=== PATIENT | male | born 1990 | race Caucasian/White ===

== ENCOUNTER 2019-12-21 04:51 | Inpatient (IN) | payer BC ==
[2019-12-21] MEDS ORDERED: Fentanyl 100 MCG/2 ML VIAL ONE (05:09)
[2019-12-21] MEDS ORDERED: Phenylephrine 10 MG/ML VIAL ONE (05:10)
[2019-12-21] MEDS ORDERED: HYDROmorphone 0.5 MG/0.5 ML SYRINGE ONE (05:10)
[2019-12-21] MEDS ORDERED: Sodium Chloride 0.9% 0 ML ONE (05:22)
[2019-12-21] MEDS ORDERED: Heparin 10,000 UNITS/1 ML VIAL ONE (05:25)
[2019-12-21 05:50] LABS: #Lymphocytes 2.3 thou/uL (1.20-3.40); #Monocytes 0.5 thou/uL (0.11-0.59); #Neutrophils 3.7 thou/uL (1.40-6.50); %Basophils 0.4 % (0.0-1.0); %Eosinophils 0.2 % (0.0-10.0); %Monocytes 7.7 % (0.0-10.0); %Neutrophils 56.8 % (42.0-75.0); Hemoglobin 9.5 g/dL (14.0-18.0); Mean Corpuscular HGB CONC 34.1 g/dL (32.0-36.0); Mean Corpuscular Volume 96.9 fL (78.0-98.0); Mean Platelet Volume 8.8 fL (7.4-10.4); Platelet Count 60 thou/uL (130-400); RBC Distribution Width 14.4 % (11.5-14.5); Red Blood Cell (RBC) Count 2.88 mill/uL (4.70-6.10); White Blood Cell (WBC) Count 6.6 thou/uL (4.8-10.8)
[2019-12-21] MEDS ORDERED: Midazolam HCl 2 mg/2 ml Vial ONE (05:54)
[2019-12-21 05:56] LABS: INR-International Normal Ratio 1.8; Prothrombin Time 20.8 SEC (12.0-14.7)
--- NOTE | 2019-12-21 06:35 | HP ---
CHIEF COMPLAINT: Abdominal pain with suspected splenic rupture. HISTORY OF PRESENT ILLNESS: The patient is a 29-year-old, previously healthy white male. He presented to an outside freestanding emergency room. He was initially hemodynamically stable, when he arrived with a complaint of left upper abdominal pain. Presenting hemoglobin was 14. He eventually underwent CT scan of the chest, abdomen, and pelvis. This revealed what appeared to be hemoperitoneum and irregularity within an enlarged spleen, which was felt to be consistent with a splenic rupture. During the course of his time at the outside ER, he has received 3 L of IV fluid and the fourth was started. He developed increasing diffuse abdominal pain over there as well as progressive hemodynamic instability. When I accepted the call from the [facility], the systolic pressure was less than 100 and his heart rate was between 120 and 130. PAST MEDICAL HISTORY: Negative. PAST SURGICAL HISTORY: None. MEDICATIONS: None. ALLERGIES: NO KNOWN DRUG ALLERGIES. PERSONAL AND SOCIAL HISTORY: He is engaged to be and has a child. 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 He smokes cigarettes, usually about a pack per day, although less recently. He drinks alcohol regularly, but it did not sound like he is a heavy drinker. He does use marijuana. REVIEW OF SYSTEMS: Otherwise unremarkable. FAMILY HISTORY: Noncontributory. PHYSICAL EXAMINATION: VITAL SIGNS: He is afebrile. Pulse is 124. Blood pressure upon arrival was 90 systolic over 45. GENERAL: He is a well-developed, well-nourished white male, who appears somewhat lethargic, but is alert and answers all questions. He is 6 feet 3 inches tall and weighs about 150 pounds. HEAD, EYES, EARS, NOSE, AND THROAT: Unremarkable. NECK: Supple without mass or tenderness. LUNGS: Clear to auscultation throughout. CARDIAC: Regular rate and rhythm without murmur. ABDOMEN: Nondistended. He has no peritoneal signs, but has diffuse abdominal discomfort to palpation. There is no dominant palpable mass. EXTREMITIES: Unremarkable. LABORATORY DATA: Stat labs have been ordered here, but are pending at this time. Hemoglobin at outside facility was 14. His liver function tests were elevated with a bilirubin of 2.7, and his transaminases were elevated in the 400 range. ASSESSMENT: The patient with splenomegaly and what appears to be splenic rupture with progressive hemodynamic instability. PLAN: Emergent laparotomy with planned splenectomy. I have discussed the operation in detail with the patient as well as potential risks. He is being transfused with O-negative blood currently. Job ID: [id number]
[2019-12-21] MEDS ORDERED: Ondansetron PF 4 MG/2 ML Vial IVP PRN ×2 (07:15→13:56)
[2019-12-21] MEDS ORDERED: Dextrose 50% Abboject 50 ML SYRINGE SLOW IVP PRN (07:15)
[2019-12-21] MEDS ORDERED: D5 1/2 NS w/20 mEq KCL 1,000 ML IV SCH (07:15)
[2019-12-21] MEDS ORDERED: Morphine 4 MG/ML VIAL SLOW IVP PRN (07:15)
[2019-12-21] MEDS ORDERED: hydrALAZINE 20 MG/ML VIAL SLOW IVP PRN (07:15)
[2019-12-21] MEDS ORDERED: Dextrose 5% in Water 1,000 ML IV PRN (07:15)
--- NOTE | 2019-12-21 07:34 | RAD ---
Exam: Chest one view HISTORY:Central line placement Comparison: None FINDINGS: Cardiac silhouette: Normal Aorta: Unremarkable Pulmonary vessels: Normal Costophrenic angles: Clear LUNGS: No masses or consolidation. Lines and tubes: Right-sided subclavian vascular catheter with the distal tip terminating on the expe cted region of the right atrium. Pneumothorax: None Osseous abnormalities: None IMPRESSION: 1. Right-sided vascular catheter with its tip terminating over the region of the right atrium. No pne umothorax.
[2019-12-21 07:54] LABS: #Basophils 0.1 thou/uL (0.0-0.2); #Lymphocytes 2.2 thou/uL (1.20-3.40); #Monocytes 1.7 thou/uL (0.11-0.59); #Neutrophils 10.6 thou/uL (1.40-6.50); %Basophils 0.8 % (0.0-1.0); %Eosinophils 0.2 % (0.0-10.0); %Lymphocytes 14.7 % (21.0-51.0); %Monocytes 11.9 % (0.0-10.0); %Neutrophils 72.5 % (42.0-75.0); Hemoglobin 15.5 g/dL (14.0-18.0); Mean Corpuscular HGB CONC 33.5 g/dL (32.0-36.0); Mean Corpuscular Hemoglobin 33.5 pg (27.0-31.0); Mean Platelet Volume 8.5 fL (7.4-10.4); Platelet Count 116 thou/uL (130-400); RBC Distribution Width 14.2 % (11.5-14.5); Red Blood Cell (RBC) Count 4.63 mill/uL (4.70-6.10); White Blood Cell (WBC) Count 14.7 thou/uL (4.8-10.8)
[2019-12-21 08:19] LABS: Anion Gap 15 mmol/L (10-20); BUN (Urea Nitrogen) 18 mg/dL (8.9-20.6); Calc. Creatinine Clearance 0 mL/min (70-130); Calcium 7.4 mg/dL (7.8-10.44); Carbon Dioxide 16 mmol/L (22-29); Chloride 109 mmol/L (98-107); Estimated GFR-MDRD Greater than 90; Glucose 174 mg/dL (70-105); Sodium 135 mmol/L (136-145)
[2019-12-21] MEDS: Famotidine/PF 20 mg/2ml Vial SLOW IVP SCH ×2 (08:32→20:12)
[2019-12-21] MEDS: Morphine 2 MG/ML SYRINGE SLOW IVP PRN ×2 (08:37→11:06)
[2019-12-21] MEDS: Lactated Ringer's 1,000 ML IV SCH ×2 (11:12→18:15)
[2019-12-21] MEDS ORDERED: PROPOFOL 200 MG/20 ML VIAL ONE (11:46)
[2019-12-21] MEDS ORDERED: Lidocaine 1% PF 5 ML VIAL ONE (11:46)
[2019-12-21] MEDS ORDERED: Calcium Chloride 1 GM/10 ML Abboject SYRINGE ONE (11:46)
[2019-12-21] MEDS ORDERED: Ondansetron PF 4 MG/2 ML Vial ONE (11:46)
[2019-12-21] MEDS ORDERED: Rocuronium Bromide 10 MG/ML (10ML VIAL) ONE (11:46)
[2019-12-21] MEDS ORDERED: Dexamethasone 20 MG/5 ML VIAL ONE (11:46)
[2019-12-21] MEDS ORDERED: Glycopyrrolate 0.2 MG/ML 5 ML SYRINGE ONE (11:46)
[2019-12-21] MEDS ORDERED: Zolpidem Tartrate 5 MG TAB PO PRN (13:56)
[2019-12-21] MEDS ORDERED: diphenhydrAMINE 50 MG/ML VIAL IM PRN (13:56)
[2019-12-21] MEDS ORDERED: Naloxone HCl 0.4 mg/ml Vial IV PRN (13:56)
[2019-12-21] MEDS ORDERED: diphenhydrAMINE 25 MG CAP PO PRN (13:56)
[2019-12-21] MEDS ORDERED: diphenhydrAMINE 50 MG/ML VIAL IVP PRN (13:56)
[2019-12-21] MEDS ORDERED: Promethazine HCl 25 MG/ML VIAL IM PRN (13:56)
[2019-12-21] MEDS ORDERED: Communication Order-Pharmacy FS PRN (14:00)
[2019-12-21] MEDS: fentaNYL Citrate/PF 2,000 MCG in Sodium Chloride 0.9% 60 ML IV PRN (15:07)
[2019-12-21 16:31] LABS: MONO NEGATIVE CONTROL ZONE White (Negative) (White); MONO POSITIVE CONTROL Pink Line (Positive) (PINK/RED); Mononucleosis POSITIVE (NEGATIVE)
--- NOTE | 2019-12-21 20:28 | CON ---
DATE OF CONSULTATION: 12/21/2019 HISTORY OF PRESENT ILLNESS: Mr. Schuler is a very pleasant gentleman, who developed abdominal pain several days back. He thought he just slept wrong. The pain on the right started to go away, then he started to have more pain in his left abdomen. He denies any trauma. He has had no fall. He says he has not felt well for about a month, but had not felt horrible either. He certainly did feel bad enough where he thought he had to go to the doctor. Apparently, he was hypotensive at an outside ER and was found to have an evolving splenic rupture. He subsequently has undergone a splenectomy. PAST MEDICAL HISTORY: Otherwise, negative. SOCIAL HISTORY: He has a 6-month-old at home. He is a smoker. Drinks occasionally. FAMILY HISTORY: Negative for lung disease in early age. REVIEW OF SYSTEMS: Otherwise, negative. PHYSICAL EXAMINATION: VITAL SIGNS: Blood pressure 120/78, heart rate 68, respiratory rate is 18, and oximetry is 97. HEAD AND NECK: Unremarkable. LUNGS: Clear. HEART: Regular rhythm. ABDOMEN: Diffusely tender after surgery as expected, but no worse. EXTREMITIES: Without clubbing, cyanosis, or edema. Anesthesia was consulted for pain pump today. LABORATORY DATA: White count 14.7; hemoglobin 15.5; platelets 116, up from 60, 000 yesterday. Sodium 135, potassium 5, chloride 109, bicarb 16, BUN 18, creatinine 0.89, anion gap is 10, and glucose is 174. IMPRESSION: Status post spontaneous splenic rupture of unclear etiology. He appears to be clinically stable. This is a 70 min consult with greater than 50% of the time spent on the unit with coordination of care. Job ID: [id number] MTDD
--- NOTE | 2019-12-21 23:38 | OP ---
DATE OF PROCEDURE: 12/21/2019 PREOPERATIVE DIAGNOSIS: Splenic rupture with hemoperitoneum and hemodynamic instability. POSTOPERATIVE DIAGNOSIS: Splenic rupture with hemoperitoneum and hemodynamic instability. PROCEDURE PERFORMED: Placement of a 12-German right subclavian hemodialysis catheter, open splenectomy. ANESTHESIA: General endotracheal. INDICATIONS: The patient is a 29-year-old white male. He had presented to an outside facility complaining of abdominal pain. During the course of his evaluation, it was recognized to have a hemoperitoneum and had developed hemodynamic instability. CT scan indicated the likelihood of a splenic rupture. Upon his arrival, he was in shock with tachycardia and hypotension. He was immediately transfused with O-negative blood and taken emergently to the operating room to proceed with surgery. DESCRIPTION OF OPERATION: Informed consent was obtained. The patient was taken to the operating room, where general endotracheal anesthesia was obtained with the patient in supine position. Attention was turned first to his central line. Due to his instability, I decided to place a large-bore catheter and obtained a 12-German hemodialysis catheter. This was placed into the right subclavian vein using modified Seldinger technique. A sterile occlusive dressing was applied. All lumens aspirated and flushed easily. Attention was turned to the abdomen. This was prepped with ChloraPrep and draped in sterile fashion. A midline upper abdominal incision was created and dissection was carried through skin and subcutaneous tissue of the abdominal cavity. A massive hemoperitoneum was recognized immediately. The Cell Saver had been assembled prior to the initiation of the operation and this was utilized to aspirate the abdominal contents. I ended up removing 3200 mL of blood from within the patient's abdomen that was submitted to the Cell Saver. During the course of the operation, I also removed numerous formed clots that were another several 100 mL. After the hemoperitoneum was removed, the spleen was examined and found to be ruptured with a large laceration across the superior pole. I packed the left upper quadrant with several laparotomy pads and assembled the Bookwalter retraction device. After this was assembled, I turned my attention to mobilization of the spleen. This was substantially enlarged with obvious splenomegaly. I mobilized this in a lateral to medial fashion. Peritoneal adhesions were broken down using a combination of blunt digital dissection and electrocautery. I was able to mobilize the spleen and identify the splenic hilum as well as the superior vessels to the short gastrics. The investing tissue and the hilum was divided between clamps, placing a total of 4 large Nicole clamps across the tissue and removing the spleen. As it was enlarged and friable, it fell apart during the course of removal and was passed off the field. The tissue and the clamps were ligated with 2-0 silk ties. The remainder of blood within the left upper quadrant was aspirated. The area thereafter was hemostatic. I divided the falciform ligament between clamps and 2-0 silk ties as a tear had developed in the membranous portion. I inspected the liver as the patient had elevated liver function tests, but there was no nodularity or visible or palpable abnormality. I inspected the rest of the abdominal cavity finding no other abnormality. The abdomen was then irrigated with 3 L of saline and then this was all aspirated. Two sheets of Seprafilm were placed within the abdominal cavity. The fascia was then closed with a running suture of looped number one PDS. Skin edges approximated with skin griselda. I considered placing a drain in the left upper quadrant, but there have been no evidence of any significant possibility of a pancreatic injury. The patient remained in stable condition through after his initial resuscitation. He had received 1 unit of blood in the emergency room and another 2 units of blood in the operating room. He also received 2 units of fresh frozen plasma and one six pack of platelets. All of his Cell Saver blood was returned to him as a total of 1800 mL of concentrated blood. The patient was taken, extubated to the intensive care unit in stable condition. Job ID: [id number]
[2019-12-22] MEDS: Lactated Ringer's 1,000 ML IV SCH ×3 (00:24→14:38)
[2019-12-22 04:30] LABS: #Lymphocytes 4.6 thou/uL (1.20-3.40); #Neutrophils 8.2 thou/uL (1.40-6.50); %Eosinophils 0.1 % (0.0-10.0); %Lymphocytes 31.1 % (21.0-51.0); %Monocytes 13.7 % (0.0-10.0); %Neutrophils 55.2 % (42.0-75.0); Hemoglobin 14.1 g/dL (14.0-18.0); Mean Corpuscular HGB CONC 34.1 g/dL (32.0-36.0); Mean Corpuscular Hemoglobin 33.8 pg (27.0-31.0); Mean Corpuscular Volume 99.1 fL (78.0-98.0); Mean Platelet Volume 9.1 fL (7.4-10.4); Platelet Count 110 thou/uL (130-400); RBC Distribution Width 14.2 % (11.5-14.5); Red Blood Cell (RBC) Count 4.16 mill/uL (4.70-6.10); White Blood Cell (WBC) Count 14.8 thou/uL (4.8-10.8)
[2019-12-22 04:52] LABS: ALT (SGPT) 200 U/L (8-55); AST (SGOT) 103 U/L (5-34); Albumin 2.8 g/dL (3.5-5.0); Alkaline Phosphatase 140 U/L (40-110); Anion Gap 11 mmol/L (10-20); BUN (Urea Nitrogen) 10 mg/dL (8.9-20.6); Bilirubin, Total 1.1 mg/dL (0.2-1.2); Calc. Creatinine Clearance 0 mL/min (70-130); Calcium 7.7 mg/dL (7.8-10.44); Carbon Dioxide 25 mmol/L (22-29); Chloride 104 mmol/L (98-107); Estimated GFR-MDRD Greater than 90; Glucose 92 mg/dL (70-105); Protein, Total 4.8 g/dL (6.0-8.3); Sodium 136 mmol/L (136-145)
[2019-12-22] MEDS: Famotidine/PF 20 mg/2ml Vial SLOW IVP SCH (08:46)
--- NOTE | 2019-12-22 12:27 | PRG ---
DATE OF SERVICE: 12/22/2019 SUBJECTIVE: Delon Schuler has no complaints. He has a NUT SIFTER pump for pain and says he has very little if any pain this morning. OBJECTIVE: VITAL SIGNS: Heart rate is 87, blood pressure 120/80, respiratory rate 16, oximetry 93. LUNGS: Unchanged. HEART: Unchanged. ABDOMEN: Unchanged. LABORATORY DATA: Hemoglobin today is 14.1, white count is 14.8, platelets are 110,000. Renal functions normal with creatinine of 0.79. Electrolytes are normal. AST is 103, ALT is 200, alk phos 140, albumin is 2.8. IMPRESSION: Spontaneous splenic rupture. Awaiting spleen pathology. ? secondary to mononucleosis. We will follow. Job ID: [id number] MTDD
[2019-12-22 13:07] VITALS: BMI 19.3
[2019-12-22] MEDS ORDERED: Acetaminophen 500 MG TAB PO PRN (13:15)
[2019-12-22] MEDS ORDERED: traMADol HCl 50 MG TAB PO PRN ×2 (13:17)
[2019-12-22] MEDS: Ketorolac Tromethamine 30 MG/ML VIAL IVP SCH (18:29)
[2019-12-22] MEDS ORDERED: Enoxaparin Sodium 40 MG/0.4 ML SYRINGE SC SCH (21:00)
[2019-12-23] MEDS: Lactated Ringer's 1,000 ML IV SCH ×2 (00:57→10:45)
[2019-12-23] MEDS: Ketorolac Tromethamine 30 MG/ML VIAL IVP SCH ×3 (00:57→11:21)
[2019-12-23] MEDS: fentaNYL Citrate/PF 2,000 MCG in Sodium Chloride 0.9% 60 ML IV PRN (05:06)
[2019-12-23] MEDS ORDERED: HYDROcodone/Acetaminophen 10/325 mg Tablet PO PRN ×2 (09:33→09:34)
[2019-12-23 10:44] VITALS: BP 112/71; TEMP 98.2
[2019-12-23] MEDS ORDERED: traMADol HCl 50 MG TAB PO PRN ×2 (11:41)
--- NOTE | 2019-12-23 12:10 | PRG ---
DATE OF SERVICE: 12/23/2019 SUBJECTIVE: Delon Schuler is status post splenectomy. He is tolerating full liquids without problems. He is not having nausea or vomiting. He has not had any abdominal distention. He, however, has not passed any flatus. He is hoping to go home today. We usually administer vaccinations post splenectomy prior to discharge, but patient is reliable and responsible and I have explained to him extensively necessity of obtaining a post splenectomy vaccinations. It best be administered 2 weeks postoperatively for best immune response. Would write him a prescription to have this done and he will drop it off to the pharmacy to assure that they order and have the necessary vaccinations and then obtain these in 2 weeks. He will be followed by Dr. Montilla in the next 7-8 days for staged staple removal. He can assure that he receive these. OBJECTIVE: PULMONARY: Clear to auscultation. CARDIAC: Regular rate and rhythm without murmur or gallop. ABDOMEN: Soft, nontender. EXTREMITIES: Unremarkable. VITAL SIGNS: Temperature 98.2 degrees, pulse 84, blood pressure 112/71. LABORATORY DATA: No labs today. 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 PLAN: Discharge home possibly later today. He can shower and bathe. Avoid lifting over 25 pounds. Home with Tylenol, Motrin for pain, 1000 mg p.o. t.i.d. p.r.n., 600 mg p.o. q.i.d. p.r.n. respectfully. Ultram 50, #35, 1-2 p.o. q.i.d. p.r.n. pain. Follow up with Dr. Montilla in 7-10 days. Vaccinations post splenectomy as outpatient. Job ID: [id number]
--- NOTE | 2019-12-23 22:37 | PRG ---
DATE OF SERVICE: 12/23/2019 SUBJECTIVE: Delon Schuler did well overnight. His hemodynamics are stable. His hemoglobin has been stable. He denies significant abdominal pain. His lungs are clear. We had a discussion about vaccinations. He needs pneumococcal, meningococcal, and Haemophilus influenza vaccinations in 2 weeks and then probably should get pneumococcal vaccines every five years, a Prevnar-13 vaccine in 6 months and influenza vaccines every year. He was taken notes in his iPhone as I explained all this to him. I have offered to give him advice by phone if he has new problems in the future. We discussed febrile illnesses in addressing these promptly in the future. We will sign off. Job ID: [id number]
--- NOTE | 2019-12-27 08:44 | PQF ---
SUZANNE WEBB MICHAEL W MD [id number] [facility] 333 [id number] CLINICAL DOCUMENTATION CLARIFICATION FORM: POST DISCHARGE Addendum to original discharge summary date: ____ Late entry note date: __ DATE: ATTN: Tj Patino Please exercise your independent, professional judgment in responding to the clarification form. 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 [x ] Yes, this is a secondary diagnosis for this patient [ ] Other (additional comments): [ ] Unable to determine For continuity of documentation, please document condition throughout progress notes and discharge summary. Thank You. CLINICAL INDICATORS - SIGNS/ SYMPTOMS / LABS / RESULTS AND LOCATION IN MR Pathology report p1 12/20 Splenic hemorrhage/Congestion and gross evidence of rupture. Pathology report p1 12/20 Numerous EBV-Positive cells identified Laboratory 12/20 Monoscreen postive H&P p2 12/20 The pt with splenomegaly and what appears to be splenic rupture with progressive hemodynamic instability PN p1 /2 Post splenectomy secondary to mononucleosis RISK FACTORS / RESULTS AND LOCATION IN MR H&P p1 12/20 Splenic rupture H&P p1 12/20 Smoker Operative report p1 12/20 Shock Operative report p1 12/20 - Hemoperitoneum TREATMENTS / RESULTS AND LOCATION IN MR MAR 12/20 IV LR 1L OCT 24 IV NS 1L OCT 24 IV Neostigmin 1mg Operative report p1 12/20 Open splenectomy (This form is maintained as a part of the permanent medical record) 2014 [employer]. All Rights Reserved Bernadette MTDD
[2019-12-27] MEDS ORDERED: Ibuprofen 600 MG TAB PO PRN (23:59)
== END 2019-12-23 15:03 | disposition home or self-care (01) | DRG 853 ==
LOC: ERS 04:51 → SDC 05:05 → CCU 06:48 → SURG A 12-22 14:59 → CCU 12-22 14:59 → SURG A 12-22 15:46
PROVIDERS: ADMIT Specialist; ATTEND Specialist
PROC: 07TP0ZZ Resection of Spleen, Open Approach (ICD-10-PCS; principal; 2019-12-21)
PROC: 02H633Z Insertion of Infusion Device into Right Atrium, Percutaneous Approach (ICD-10-PCS; 2019-12-21)
PROC: 30233N1 Transfusion of Nonautologous Red Blood Cells into Peripheral Vein, Percutaneous Approach (ICD-10-PCS; 2019-12-21)
PROC: 30233L1 Transfusion of Nonautologous Fresh Plasma into Peripheral Vein, Percutaneous Approach (ICD-10-PCS; 2019-12-21)
PROC: 30233R1 Transfusion of Nonautologous Platelets into Peripheral Vein, Percutaneous Approach (ICD-10-PCS; 2019-12-21)
PROC: 3E0M05Z Introduction of Adhesion Barrier into Peritoneal Cavity, Open Approach (ICD-10-PCS; 2019-12-21)
PROC: 0WCG0ZZ Extirpation of Matter from Peritoneal Cavity, Open Approach (ICD-10-PCS; 2019-12-21)
DX: B27.09 Gammaherpesviral mononucleosis with other complications (principal); K66.1 Hemoperitoneum; R57.8 Other shock; D73.5 Infarction of spleen; F17.210 Nicotine dependence, cigarettes, uncomplicated
CPT/HCPCS: 36416; 36430; 71045; 80048; 80053; 85025; 85610; 86308; 86850; 86900; 86901; 88305; 99285; J1100; J1170; J1644; J1650; J1885; J2001; J2250; J2270; J2370; J2405; J2704; J3010; J3480; J3490; P9016; P9035; P9048; S0028